=== PATIENT | female | born 1990 | race African-American/Black ===

== ENCOUNTER 2019-09-18 15:41 | Emergency (ER) | payer MEDICAID, OTHER ==
[~2019-09-18] VITALS: Ht 165.1 cm; Wt 120.0 kg
[2019-09-18] MEDS ORDERED: HYDROCODONE/ACETAMINOPHEN 5/325MG TABLET PO ONE (22:45)
[2019-09-18] MEDS ORDERED: ONDANSETRON 4MG ODT PO ONE (22:45)
[2019-09-18] MEDS ORDERED: KETOROLAC 60MG/2ML VIAL IM ONE (22:45)
[2019-09-19 00:22] VITALS: BP 121/80
== END 2019-09-19 00:27 | disposition home or self-care (01) ==
LOC: ER 15:41
DX: B34.9 Viral infection, unspecified (principal)
CPT/HCPCS: 96372; 99283; J1885; Q0162